=== PATIENT | female | born 2000 | race Caucasian/White ===

== ENCOUNTER 2020-09-24 12:10 | Emergency (ER) | payer OTHER ==
[~2020-09-24] VITALS: Ht 152.4 cm; Wt 56.7 kg
== END 2020-09-24 16:42 | disposition home or self-care (01) ==
LOC: ER 12:10
DX: K29.60 Other gastritis without bleeding (principal)

== ENCOUNTER 2020-11-07 11:32 | Emergency (ER) | payer OTHER ==
[~2020-11-07] VITALS: Ht 152.4 cm; Wt 53.5 kg
== END 2020-11-07 14:38 | disposition home or self-care (01) ==
LOC: ER 11:32
DX: R30.0 Dysuria (principal)

== ENCOUNTER 2020-12-12 19:52 | Emergency (ER) | payer OTHER ==
[~2020-12-12] VITALS: Ht 157.5 cm; Wt 54.4 kg
== END 2020-12-13 19:42 | disposition home or self-care (01) ==
LOC: ER 19:52
DX: K29.70 Gastritis, unspecified, without bleeding (principal); N39.0 Urinary tract infection, site not specified; R10.11 Right upper quadrant pain

== ENCOUNTER 2020-12-14 06:15 | Inpatient (IN) | payer OTHER ==
[~2020-12-14] VITALS: Ht 162.6 cm; Wt 63.5 kg
== END 2020-12-16 23:25 | disposition home or self-care (01) | DRG 641 ==
LOC: ER 06:15 → MEDJ 15:56 → MEDI 12-16 15:31
PROVIDERS: ADMIT Internal Medicine; ATTEND Internal Medicine
PROC: BW2110Z Computerized Tomography (CT Scan) of Abdomen and Pelvis using Low Osmolar Contrast, Unenhanced and Enhanced (ICD-10-PCS; principal; 2020-12-14)
PROC: CF1CYZZ Planar Nuclear Medicine Imaging of Hepatobiliary System, All using Other Radionuclide (ICD-10-PCS; 2020-12-14)
DX: E86.0 Dehydration (principal); R11.10 Vomiting, unspecified; R10.9 Unspecified abdominal pain; B37.49 Other urogenital candidiasis; K82.8 Other specified diseases of gallbladder; Z20.822 Contact with and (suspected) exposure to COVID-19

== ENCOUNTER 2021-08-20 07:02 | Emergency (ER) | payer OTHER ==
[~2021-08-20] VITALS: Ht 152.4 cm; Wt 52.2 kg
== END 2021-08-20 10:34 | disposition left against medical advice (07) ==
LOC: ER 07:02
DX: K29.70 Gastritis, unspecified, without bleeding (principal); E86.0 Dehydration; R11.2 Nausea with vomiting, unspecified